=== PATIENT | male | born 1965 | race Caucasian/White ===

== ENCOUNTER 2025-09-01 05:43 | Day surgery (SDC) | payer OTHER ==
[~2025-09-01] VITALS: Ht 180.3 cm; Wt 101.4 kg
[~2025-09-01 05:43] MED LIST: CETI10TA77 PO; FLUT16SP NASAL; LIDO1ADH16 TP; OMEP-148 PO; PROP15DR OU; SODIUM CHLORIDE 0.9% 1,000 ML ONE
[2025-09-01] MEDS ORDERED: PROPOFOL 1% ISO-OSM 1000 MG/100 ML BOTTLE IV ONE (05:44)
[2025-09-01] MEDS: SODIUM CHLORIDE 0.9% 1,000 ML IV ONE (06:31)
[2025-09-01] MEDS ORDERED: ASPI-1450 PO (06:48)
[2025-09-01] MEDS ORDERED: FLUMAZENIL 0.1 MG/ML 5 ML VIAL IVP ONE (07:02)
[2025-09-01] MEDS ORDERED: EPINEPHrine 1:10,000 [1 MG/10 ML] SYRINGE ONE (07:02)
[2025-09-01] MEDS ORDERED: ATROPINE SULFATE 0.1 MG/ML 10 ML SYRINGE IVP ONE (07:02)
[2025-09-01] MEDS ORDERED: NALOXONE HCL 0.4 MG/ML VIAL ONE (07:02)
[2025-09-01] MEDS ORDERED: SODIUM TETRADECYL SULFATE 3% 60 MG/2 ML VIAL IVP ONE (07:02)
== END 2025-09-01 09:15 | disposition home or self-care (01) ==
LOC: SURGERY 05:43
PROVIDERS: ATTEND Surgery
DX: K35.32 Acute appendicitis with perforation, localized peritonitis, and gangrene, without abscess (principal); R94.31 Abnormal electrocardiogram [ECG] [EKG]
CPT/HCPCS: 45378; 93005; J2704; J7030; J0169; J0461; J1200; J2312; J3490